=== PATIENT | male | born 1985 | race American Indian/Alaskan Native ===

== ENCOUNTER 2018-09-12 22:07 | Emergency (ER) | payer MEDICAID ==
--- NOTE | 2018-09-13 00:21 | XRay Report ---
PROCEDURE: XR CHEST ROUTINE 2V TECHNIQUE: PA and lateral chest radiographs were obtained. HISTORY: SOB and tachycardia COMPARISONS: None. FINDINGS: Heart: Normal. Mediastinum/Vessels: Normal. Lungs/Pleural space: There is a slight infiltrate left lingular portion of the lung. No effusion or pneumothorax. Bony thorax: No acute osseous abnormality. IMPRESSION: Mild infiltrate left lingular portion of the lung. This document is electronically signed by Neha Gudino DO., September 13 2018 12:19:42 AM ET
[2018-09-13] MEDS ORDERED: ROCEPHIN IM ONE ×2 (04:57→06:18)
[2018-09-13] MEDS ORDERED: XYLOCAINE 1% MPF 5 mL INFILTRATI ONE ×2 (04:57→07:02)
[2018-09-13] MEDS ORDERED: NACL 0.9% 1000 ML 1,000 ML IV ONE (04:58)
[2018-09-13 05:12] LABS: Hemoglobin 11.4 gm/dl (11.8-15.2); Mean Corpuscular HGB Conc 33 % (32-34); Mean Corpuscular Volume 89 fl (84-94); Platelet Count 394 K/mm3 (140-440); Red Blood Count 3.92 M/mm3 (3.65-5.03); Red Cell Distribution Width 14.3 % (13.2-15.2)
[2018-09-13 05:29] LABS: BUN/Creatinine Ratio 12; Blood Urea Nitrogen 13 mg/dL (9-20); Calcium 9.4 mg/dL (8.4-10.2); Hemolysis Index 13
--- NOTE | 2018-09-13 05:31 | Emergency Department Report ---
- General Chief Complaint: Dyspnea/Respdistress Stated Complaint: PNEUMONIA Time Seen by Provider: 09/13/18 04:18 Source: patient, EMS Mode of arrival: Ambulatory Limitations: No Limitations - History of Present Illness Initial Comments: Pt is a 33 yo male who presents to the ED with c/o a cough with mucus production that began 2 weeks ago. He has associated rhinorrhea, congestion, midl SOB, and subjective fever. He has a hx of HTN, asthma, and HIV. The patient states he has been taking his antivirals daily. He states he also uses an albuterol inhaler for his asthma. - Related Data Previous Rx's Medication Instructions Recorded Last Taken Type Azithromycin [Zithromax] 250 mg PO DAILY 5 Days #6 tablet 09/13/18 Unknown Rx Benzonatate [Tessalon Perles] 100 mg PO Q8HR PRN #20 capsule 09/13/18 Unknown Rx Nystas/Diphen/Xyl Visc/Mylanta 30 ml MM Q4H PRN #480 ml 09/13/18 Unknown Rx [Magic Mouthwash] guaiFENesin [Mucinex] 600 mg PO BID #14 tab.er.12h 09/13/18 Unknown Rx Allergies Allergy/AdvReac Type Severity Reaction Status Date / Time No Known Allergies Allergy Unverified 09/12/18 23:51 ED Review of Systems ROS: Stated complaint: PNEUMONIA Other details as noted in HPI Comment: All other systems reviewed and negative ED Past Medical Hx - Medications Home Medications: Home Medications Medication Instructions Recorded Confirmed Last Taken Type Azithromycin [Zithromax] 250 mg PO DAILY 5 Days #6 tablet 09/13/18 Unknown Rx Benzonatate [Tessalon Perles] 100 mg PO Q8HR PRN #20 capsule 09/13/18 Unknown Rx Nystas/Diphen/Xyl Visc/Mylanta 30 ml MM Q4H PRN #480 ml 09/13/18 Unknown Rx [Magic Mouthwash] guaiFENesin [Mucinex] 600 mg PO BID #14 tab.er.12h 09/13/18 Unknown Rx ED Physical Exam - General Limitations: No Limitations General appearance: alert, in no apparent distress - Head Head exam: Present: atraumatic, normocephalic - Eye Eye exam: Present: normal appearance - ENT ENT exam: Present: other (white plaques in the posterior oropharynx with some surrounding erythema, uvula is midline) - Respiratory Respiratory exam: Present: normal lung sounds bilaterally. Absent: respiratory distress, wheezes, rales, rhonchi, stridor, chest wall tenderness, accessory muscle use, decreased breath sounds, prolonged expiratory - Cardiovascular Cardiovascular Exam: Present: regular rate, normal rhythm, normal heart sounds. Absent: systolic murmur, diastolic murmur, rubs, gallop - Neurological Exam Neurological exam: Present: alert, oriented X3 - Psychiatric Psychiatric exam: Present: normal affect, normal mood - Skin Skin exam: Present: warm, dry, intact ED Course Vital Signs 09/13/18 06:40 Pulse Rate 99 H Respiratory 18 Rate O2 Sat by Pulse 99 Oximetry ED Medical Decision Making - Lab Data Result diagrams: 09/13/18 Unknown 09/13/18 Unknown Lab Results 09/13/18 09/13/18 Range/Units Unknown Unknown WBC 5.8 (4.5-11.0) K/mm3 RBC 3.92 (3.65-5.03) M/mm3 Hgb 11.4 L (11.8-15.2) gm/dl Hct 35.0 L (35.5-45.6) % MCV 89 (84-94) fl MCH 29 (28-32) pg MCHC 33 (32-34) % RDW 14.3 (13.2-15.2) % Plt Count 394 (140-440) K/mm3 Add Manual Diff Complete Total Counted 100 Seg Neuts % (Manual) 75.0 H (40.0-70.0) % Band Neutrophils % 0 % Lymphocytes % (Manual) 9.0 L (13.4-35.0) % Reactive Lymphs % (Man) 0 % Monocytes % (Manual) 12.0 H (0.0-7.3) % Eosinophils % (Manual) 4.0 (0.0-4.3) % Basophils % (Manual) 0 (0.0-1.8) % Metamyelocytes % 0 % Myelocytes % 0 % Promyelocytes % 0 % Blast Cells % 0 % Nucleated RBC % 1.0 H (0.0-0.9) % Seg Neutrophils # Man 4.4 (1.8-7.7) K/mm3 Band Neutrophils # 0.0 K/mm3 Lymphocytes # (Manual) 0.5 L (1.2-5.4) K/mm3 Abs React Lymphs (Man) 0.0 K/mm3 Monocytes # (Manual) 0.7 (0.0-0.8) K/mm3 Eosinophils # (Manual) 0.2 (0.0-0.4) K/mm3 Basophils # (Manual) 0.0 (0.0-0.1) K/mm3 Metamyelocytes # 0.0 K/mm3 Myelocytes # 0.0 K/mm3 Promyelocytes # 0.0 K/mm3 Blast Cells # 0.0 K/mm3 WBC Morphology Not Reportable Hypersegmented Neuts Not Reportable Hyposegmented Neuts Not Reportable Hypogranular Neuts Not Reportable Smudge Cells Not Reportable Toxic Granulation Not Reportable Toxic Vacuolation Not Reportable Dohle Bodies Not Reportable Pelger-Huet Anomaly Not Reportable Terry Rods Not Reportable Platelet Estimate Consistent w auto Clumped Platelets Not Reportable Plt Clumps, EDTA Not Reportable Large Platelets Not Reportable Giant Platelets Not Reportable Platelet Satelliting Not Reportable Plt Morphology Comment Not Reportable RBC Morphology Not Reportable Dimorphic RBCs Not Reportable Polychromasia Not Reportable Hypochromasia Not Reportable Poikilocytosis Not Reportable Anisocytosis Few Microcytosis Not Reportable Macrocytosis Not Reportable Spherocytes Not Reportable Pappenheimer Bodies Not Reportable Sickle Cells Not Reportable Target Cells Not Reportable Tear Drop Cells Not Reportable Ovalocytes Not Reportable Helmet Cells Not Reportable [place] Bodies Not Reportable [place] Rings Not Reportable [place] Cells Not Reportable Bite Cells Not Reportable Crenated Cell Not Reportable Elliptocytes Not Reportable Acanthocytes (Spur) Not Reportable Rouleaux Not Reportable Hemoglobin C Crystals Not Reportable Schistocytes Not Reportable Malaria parasites Not Reportable Leobardo Bodies Not Reportable Hem Pathologist Commnt No Sodium 138 (137-145) mmol/L Potassium 4.6 (3.6-5.0) mmol/L Chloride 95.7 L (98-107) mmol/L Carbon Dioxide 26 (22-30) mmol/L Anion Gap 21 mmol/L BUN 13 (9-20) mg/dL Creatinine 1.1 (0.8-1.5) mg/dL Estimated GFR > 60 ml/min BUN/Creatinine Ratio 12 % Glucose 64 L (75-100) mg/dL Calcium 9.4 (8.4-10.2) mg/dL Vital Signs 09/13/18 06:40 Pulse Rate 99 H Respiratory 18 Rate O2 Sat by Pulse 99 Oximetry - Radiology Data Radiology results: report reviewed PROCEDURE: XR CHEST ROUTINE 2V TECHNIQUE: PA and lateral chest radiographs were obtained. HISTORY: SOB and tachycardia COMPARISONS: None. FINDINGS: Heart: Normal. Mediastinum/Vessels: Normal. Lungs/Pleural space: There is a slight infiltrate left lingular portion of the lung. No effusion or pneumothorax. Bony thorax: No acute osseous abnormality. IMPRESSION: Mild infiltrate left lingular portion of the lung. This document is electronically signed by Neha Gudino DO., September 13 2018 12:19:42 AM ET - Medical Decision Making Pt is a 33 yo male who presents to the ED with c/o a cough with mucus production that began 2 weeks ago. He has associated rhinorrhea, congestion, mild SOB, and subjective fever. He has a hx of HTN, asthma, and HIV. The patient states he h as been taking his antivirals daily. He states he also uses an albuterol inhaler for his asthma. on examination pt appears to have oral candidiasis in the posterior pharynx will give pt magic mouth and have pt see infectious disease tomorrow. no wheezing, rales, or rhonchi on examination. VSS. labs WNL. on CXR shows a mild infiltrate left lingular portion of the lung. will give pt ceftriaxone injection in the ED and prescription for zpak. pt is afebrile and no leukocytosis. pt refuses IV fluids, advised to please drink plenty of fluids by mouth. will also give tessalon perles, mucinex, albuterol inhaler. Pt will need to see infectious disease on 09/13/18. Return to the emergency room for any new or worsening symptoms. - Differential Diagnosis PNA, URI, viral syndrome, oral candidiasis Critical care attestation.: If time is entered above; I have spent that time in minutes in the direct care of this critically ill patient, excluding procedure time. ED Disposition Clinical Impression: Oral candidiasis PNA (pneumonia) Qualifiers: Pneumonia type: due to unspecified organism Laterality: left Lung location: unspecified part of lung Qualified Code(s): J18.9 - Pneumonia, unspecified organism Disposition: DC-01 TO HOME OR SELFCARE Is pt being admited?: No Does the pt Need Aspirin: No Condition: Stable Instructions: Oral Candidiasis (ED), Community-acquired Pneumonia (ED) Additional Instructions: Please take all medication as prescribed. Please drink plenty of fluids. Please see infectious disease on 09/13/18. Return to the emergency room for any new or worsening symptoms. Prescriptions: Nystas/Diphen/Xyl Visc/Mylanta [Magic Mouthwash] 30 ml MM Q4H PRN #480 ml PRN Reason: Mouth Pain guaiFENesin [Mucinex] 600 mg PO BID #14 tab.er.12h Benzonatate [Tessalon Perles] 100 mg PO Q8HR PRN #20 capsule PRN Reason: Cough Azithromycin [Zithromax] 250 mg PO DAILY 5 Days #6 tablet Referrals: SILVIO BRAXTON MD [Primary Care Provider] - 2-3 Days MOI PICKERING MD [Staff Physician] - [facility] Time of Disposition: 05:37 Print Language: KISWAHILI
[2018-09-13 09:13] LABS: Basophils % (Manual) 0 % (0.0-1.8); Total Cells Counted 100
[2018-09-13 09:14] LABS: Anisocytosis Few; Platelet Estimate Consistent w Auto
== END 2018-09-13 06:40 | disposition home or self-care (01) ==
LOC: ED 22:07
DX: B37.0 Candidal stomatitis (principal); J18.9 Pneumonia, unspecified organism
CPT/HCPCS: 36415; 71046; 80048; 85007; 85025; 96372; 99284; J0696; J7030

== ENCOUNTER 2019-10-12 19:41 | Emergency (ER) | payer MEDICAID ==
[2019-10-12 19:50] VITALS: BP 126/86
[2019-10-12] MEDS ORDERED: ONDANSETRON 4 MG/2 ML INJ IV ONE (20:56)
[2019-10-12] MEDS ORDERED: DIPHENOXYLATE/ATROPINE TAB PO ONE (20:56)
[2019-10-12] MEDS ORDERED: FAMOTIDINE 20 MG/2 ML INJ IV ONE (20:56)
[2019-10-12] MEDS ORDERED: LACTATED RINGERS 1,000 ML IV ONE (20:56)
[2019-10-12 21:17] LABS: Alanine Aminotransferase 35 units/L (7-56); Albumin 4.2 g/dL (3.9-5); BUN/Creatinine Ratio 11; Blood Urea Nitrogen 15 mg/dL (9-20); Calcium 9.8 mg/dL (8.4-10.2); Hemolysis Index 20
[2019-10-12 21:45] LABS: Bacteria,Urine 1+ /HPF (Negative); Bilirubin,Urine SM (Negative); Blood,Urine NEG (Negative); Color,Urine Amber (Yellow); Mucus,Urine 3+ /HPF
[2019-10-12 21:55] LABS: Red Blood Count TNR M/mm3 (3.65-5.03)
[2019-10-12 21:56] LABS: Hematocrit TNR % (35.5-45.6); Hemoglobin TNR gm/dl (11.8-15.2); Mean Corpuscular HGB Conc TNR % (32-34); Mean Corpuscular Volume TNR fl (84-94); Platelet Count TNR K/mm3 (140-440); Red Cell Distribution Width TNR % (13.2-15.2)
[2019-10-12 21:57] LABS: Basophils % (Auto) TNR % (0.0-1.8); Eosinophils % (Auto) TNR % (0.0-4.3); Lymphocytes # (Auto) TNR K/mm3 (1.2-5.4); Lymphocytes % (Auto) TNR % (13.4-35.0); Mean Platelet Volume TNR fl (6-12); Monocytes # (Auto) TNR K/mm3 (0.0-0.8); Monocytes % (Auto) TNR % (0.0-7.3)
[2019-10-12 21:58] LABS: Band Neutrophils # (Manual) TNR K/mm3; Basophils # (Auto) TNR K/mm3 (0.0-0.1); Basophils % (Manual) TNR % (0.0-1.8); Eosinophils # (Auto) TNR K/mm3 (0.0-0.4); Eosinophils % (Manual) TNR % (0.0-4.3); Monocytes % (Manual) TNR % (0.0-7.3); Total Cells Counted TNR
[2019-10-12 21:59] LABS: Dimorphic RBC TNR; Giant Platelets TNR; Hypersegmented Neutrophils TNR; Hypersegmented Polys TNR; Hypochromasia TNR; Large Platelets TNR; Myelocytes # (Manual) TNR K/mm3; Nucleated Red Blood Cells TNR % (0.0-0.9); Platelet Clumps TNR; Platelet Estimate TNR; Platelet Morphology TNR; Platelet Satelitosis TNR; Poikilocytosis TNR; Promyelocytes # (Manual) TNR K/mm3; RBC Morphology TNR; Smudge Cells TNR
[2019-10-12 22:00] LABS: Anisocytosis TNR; Auer Rods TNR; Basophilic Stippling TNR; Bite Cells TNR; Burr Cells TNR; Cabot Rings TNR; Crenated RBC TNR; Dohle Bodies TNR; Helmet Cells TNR; Hgb C Crystals TNR; Howell-Jolly Bodies TNR; Macrocytosis TNR; Ovalocytes TNR; Pappenheimer Bodies TNR; Rouleaux TNR; Schistocytes TNR; Sickle Cells TNR; Spherocytes TNR; Stomatocytes TNR; Target Cells TNR; Tear Drop Cells TNR; Toxic Granulation TNR; Toxic Vacuolation TNR
[2019-10-12 22:55] LABS: Hematocrit 37.3 % (35.5-45.6); Hemoglobin 11.9 gm/dl (11.8-15.2); Mean Corpuscular HGB Conc 32 % (32-34); Mean Corpuscular Volume 84 fl (84-94); Platelet Count 349 K/mm3 (140-440); Red Blood Count 4.44 M/mm3 (3.65-5.03); Red Cell Distribution Width 16.9 % (13.2-15.2)
--- NOTE | 2019-10-12 23:38 | Emergency Department Report ---
ED N/V/D HPI - General Chief complaint: Abdominal Pain Stated complaint: STOMACH PAIN,DIARRHEA Source: patient Mode of arrival: Ambulatory Limitations: No Limitations - History of Present Illness Initial comments: Patient is a 34-year-old -[place] male with a history of HIV and on ARV medications who presented to the ED with complaint of acute onset persistent diarrhea for the last 4 days. Patient states that he has also had mild abdominal discomfort which she describes as bloating with intermittent nausea. Patient states that he has had multiple diarrhea episodes in the last 12 hours. Patient states that no one else at home has had similar symptoms. Patient s tates that he has been taking [id number] medications with no relief. Patient denies vomiting, fever, chills, dizziness, syncope, abdominal pain, dysuria, urinary frequency and urgency, cough, sore throat, shortness of breath, chest pain, hematemesis or hematochezia. Patient states that he has had multiple diarrhea episodes in the last 12 hours. Patient states that no one else at home has had similar symptoms. Patient did MD complaint: nausea, diarrhea -: Sudden, days(s) (4) Description of Diarrhea: water Associated Abdominal Pain: No Location: diffuse Radiation: none Severity: moderate Pain Scale: 4 Quality: dull Improves with: none Worsens with: none Associated Symptoms: denies other symptoms. denies: myalgias, chest pain, cough, diaphoresis, fever/chills, headaches, loss of appetite, malaise, nausea/vomiting, rash, shortness of breath, syncope, other - Related Data Previous Rx's Medication Instructions Recorded Last Taken Type Azithromycin [Zithromax] 250 mg PO DAILY 5 Days #6 tablet 09/13/18 Unknown Rx Benzonatate [Tessalon Perles] 100 mg PO Q8HR PRN #20 capsule 09/13/18 Unknown Rx Nystas/Diphen/Xyl Visc/Mylanta 30 ml MM Q4H PRN #480 ml 09/13/18 Unknown Rx [Magic Mouthwash] guaiFENesin [Mucinex] 600 mg PO BID #14 tab.er.12h 09/13/18 Unknown Rx Dicyclomine [Bentyl] 20 mg PO Q6H PRN #24 tablet 10/12/19 Unknown Rx Diphenoxylate/Atropine [Lomotil] 2 tab PO Q4H PRN #20 tablet 10/12/19 Unknown Rx Famotidine [Pepcid] 20 mg PO Q12H #30 tablet 10/12/19 Unknown Rx Allergies Allergy/AdvReac Type Severity Reaction Status Date / Time No Known Allergies Allergy Unverified 09/12/18 23:51 ED Review of Systems ROS: Stated complaint: STOMACH PAIN,DIARRHEA Other details as noted in HPI Constitutional: denies: chills, fever Eyes: denies: eye pain, eye discharge, vision change ENT: denies: ear pain, throat pain Respiratory: denies: cough, shortness of breath, wheezing Cardiovascular: denies: chest pain, palpitations Endocrine: no symptoms reported Gastrointestinal: nausea, diarrhea. denies: abdominal pain Genitourinary: denies: urgency, dysuria Musculoskeletal: denies: back pain, joint swelling, arthralgia Skin: denies: rash, lesions Neurological: denies: headache, weakness, paresthesias Psychiatric: denies: anxiety, depression Hematological/Lymphatic: denies: easy bleeding, easy bruising ED Past Medical Hx - Past Medical History Previous Medical History?: Yes Hx HIV: Yes - Surgical History Past Surgical History?: Yes Additional Surgical History: bronchoscopy - Social History Smoking Status: Current Every Day Smoker Substance Use Type: Marijuana - Medications Home Medications: Home Medications Medication Instructions Recorded Confirmed Last Taken Type Azithromycin [Zithromax] 250 mg PO DAILY 5 Days #6 tablet 09/13/18 Unknown Rx Benzonatate [Tessalon Perles] 100 mg PO Q8HR PRN #20 capsule 09/13/18 Unknown Rx Nystas/Diphen/Xyl Visc/Mylanta 30 ml MM Q4H PRN #480 ml 09/13/18 Unknown Rx [Magic Mouthwash] guaiFENesin [Mucinex] 600 mg PO BID #14 tab.er.12h 09/13/18 Unknown Rx Dicyclomine [Bentyl] 20 mg PO Q6H PRN #24 tablet 10/12/19 Unknown Rx Diphenoxylate/Atropine [Lomotil] 2 tab PO Q4H PRN #20 tablet 10/12/19 Unknown Rx Famotidine [Pepcid] 20 mg PO Q12H #30 tablet 10/12/19 Unknown Rx ED Physical Exam - General Limitations: No Limitations General appearance: alert, in no apparent distress - Head Head exam: Present: atraumatic, normocephalic, normal inspection - Eye Eye exam: Present: normal appearance, PERRL, EOMI Pupils: Present: normal accommodation - ENT ENT exam: Present: normal exam, normal orophraynx, mucous membranes moist, TM's normal bilaterally, normal external ear exam - Neck Neck exam: Present: normal inspection, full ROM. Absent: tenderness, lymphadenopathy - Respiratory Respiratory exam: Present: normal lung sounds bilaterally. Absent: respiratory distress, wheezes, rales, rhonchi, stridor, chest wall tenderness, accessory muscle use, decreased breath sounds - Cardiovascular Cardiovascular Exam: Present: normal rhythm, tachycardia, normal heart sounds. Absent: systolic murmur, diastolic murmur, rubs, gallop - GI/Abdominal GI/Abdominal exam: Present: soft, normal bowel sounds. Absent: distended, tenderness, guarding, hyperactive bowel sounds, hypoactive bowel sounds, organomegaly - Extremities Exam Extremities exam: Present: normal inspection, full ROM, normal capillary refill - Back Exam Back exam: Present: normal inspection, full ROM. Absent: tenderness, CVA tenderness (R), muscle spasm, paraspinal tenderness, vertebral tenderness - Neurological Exam Neurological exam: Present: alert, oriented X3, CN II-XII intact, normal gait, r eflexes normal - Psychiatric Psychiatric exam: Present: normal affect, normal mood - Skin Skin exam: Present: warm, dry, intact, normal color. Absent: rash ED Course Vital Signs 10/12/19 10/12/19 19:48 23:54 Temperature 97.9 F 97.6 F Pulse Rate 111 H 102 H Respiratory 16 18 Rate Blood Pressure 126/86 124/77 O2 Sat by Pulse 100 100 Oximetry ED Medical Decision Making - Lab Data Result diagrams: 10/12/19 22:04 10/12/19 20:46 - Medical Decision Making This is a 34-year-old -[place] male with a history of HIV and on ARV medications who presented to the ED with complaint of acute onset persistent diarrhea for the last 4 days. Patient states that he has also had mild abdominal discomfort which she describes as bloating with intermittent nausea. Patient states that he has had multiple diarrhea episodes in the last 12 hours. Patient states that no one else at home has had similar symptoms. Patient states that he has been taking [id number] medications with no relief. In the ED, patient is alert and oriented x3 and is not in distress but tachycardic in triage. Patient was treated in the ED for diarrhea, nausea and antacids, and also given lactated Ringer's 1 L IV bolus x1. On reevaluation, patient felt better and the tachycardia resolved with treatment. Patient was discharged home on medications and advised to follow-up with his primary care physician in 5 to 7 days for reevaluation, meanwhile maintain a clear liquid diet for 12 to 24 hours as he takes medications. Patient was advised to return to the ED immediately if symptoms get worse. - Differential Diagnosis Viral gastroenteritis; Dehydration; Medication side-effects Critical care attestation.: If time is entered above; I have spent that time in minutes in the direct care of this critically ill patient, excluding procedure time. ED Disposition Clinical Impression: Viral gastroenteritis, Diarrhea in adult patient Disposition: TO HOME OR SELFCARE Is pt being admited?: No Does the pt Need Aspirin: No Condition: Stable Instructions: Gastroenteritis (ED), Acute Diarrhea (ED) Additional Instructions: All lab test results are nonactionable. Your symptoms are likely viral in etiology, therefore take medications with food, maintain a clear liquid diet for 12 to 24 hours and follow-up with your primary care physician in 5 to 7 days for reevaluation. Return to the ED immediately if symptoms get worse. Prescriptions: Dicyclomine [Bentyl] 20 mg PO Q6H PRN #24 tablet PRN Reason: Pain , Severe (7-10) Diphenoxylate/Atropine [Lomotil] 2 tab PO Q4H PRN #20 tablet PRN Reason: Diarrhea Famotidine [Pepcid] 20 mg PO Q12H #30 tablet Referrals: RAHEL MITCHELL MD [Primary Care Provider] - 3-5 Days Time of Disposition: 23:35 Print Language: HAITIAN
[2019-10-13 01:06] LABS: Anisocytosis 1+; Basophils % (Manual) 0 % (0.0-1.8); Platelet Estimate Consistent w Auto; Total Cells Counted 100
== END 2019-10-12 23:56 | disposition home or self-care (01) ==
LOC: ED 19:41
DX: K21.9 Gastro-esophageal reflux disease without esophagitis (principal); F17.200 Nicotine dependence, unspecified, uncomplicated; F12.10 Cannabis abuse, uncomplicated; Z79.899 Other long term (current) drug therapy
CPT/HCPCS: 36415; 80053; 81001; 83690; 85007; 85025; 96361; 96374; 96375; 99283; J2405; J7120

== ENCOUNTER 2020-01-24 12:14 | Emergency (ER) | payer MEDICAID ==
[2020-01-24 13:11] VITALS: BP 116/77
--- NOTE | 2020-01-24 13:21 | Event Note ---
ED Screening Note Date of service: 01/24/20 Time: 13:17 ED Screening Note: 34-year-old male with a history of HIV currently out of his medication presents with a week of body aches, worsening chest pain that began yesterday and feelings of fatigue. Denies any unknown sick contact. This initial assessment/diagnostic orders/clinical plan/treatment(s) is/are subject to change based on patients health status, clinical progression and re- assessment by fellow clinical providers in the ED. Further treatment and workup at subsequent clinical providers discretion. Patient/guardian urged not to elope from the ED as their condition may be serious if not clinically assessed and managed. Initial orders include: Labs, chest x-ray, EKG
[2020-01-24 14:05] LABS: Hematocrit 43.2 % (35.5-45.6); Hemoglobin 14.2 gm/dl (11.8-15.2); Mean Corpuscular HGB Conc 33 % (32-34); Mean Corpuscular Volume 84 fl (84-94); Platelet Count 339 K/mm3 (140-440); Red Blood Count 5.14 M/mm3 (3.65-5.03); Red Cell Distribution Width 14.7 % (13.2-15.2)
[2020-01-24 14:24] LABS: BUN/Creatinine Ratio 11; Blood Urea Nitrogen 17 mg/dL (9-20); Calcium 10.3 mg/dL (8.4-10.2); Hemolysis Index 7
--- NOTE | 2020-01-24 14:46 | XRay Report ---
CHEST 2 VIEWS INDICATION / CLINICAL INFORMATION: Upper Respiratory Infection. COMPARISON: Chest x-ray 09/12/2018 FINDINGS: SUPPORT DEVICES: None. HEART / MEDIASTINUM: No significant abnormality. LUNGS / PLEURA: No significant pulmonary or pleural abnormality. No pneumothorax. ADDITIONAL FINDINGS: No significant additional findings. IMPRESSION: 1. No acute findings. Signer Name: Agustín Ndiaye MD Signed: 01/24/2020 2:42 PM Workstation Name: [id number]
[2020-01-24 14:51] LABS: Anisocytosis 1+; Basophils % (Manual) 0 % (0.0-1.8); Hypochromasia 1+; Platelet Estimate Consistent w Auto; Total Cells Counted 100
== END 2020-01-24 14:00 | disposition left against medical advice (07) ==
LOC: ED 12:14
DX: J02.9 Acute pharyngitis, unspecified (principal); Z53.21 Procedure and treatment not carried out due to patient leaving prior to being seen by health care provider
CPT/HCPCS: 36415; 71046; 80048; 85007; 85025

== ENCOUNTER 2020-02-12 08:10 | Emergency (ER) | payer MEDICAID ==
[2020-02-12 09:10] LABS: Hemoglobin 15.2 gm/dl (11.8-15.2); Mean Corpuscular HGB Conc 32 % (32-34); Mean Corpuscular Volume 86 fl (84-94); Platelet Count 287 K/mm3 (140-440); Red Blood Count 5.46 M/mm3 (3.65-5.03); Red Cell Distribution Width 14.9 % (13.2-15.2)
[2020-02-12 09:34] LABS: Alanine Aminotransferase 28 units/L (7-56); Albumin 4.6 g/dL (3.9-5); BUN/Creatinine Ratio 13; Blood Urea Nitrogen 18 mg/dL (9-20); Calcium 10.1 mg/dL (8.4-10.2); Hemolysis Index 4
[2020-02-12] MEDS ORDERED: SODIUM CHLORIDE 0.9% 1000 ML 1,000 ML IV ONE ×2 (09:34→11:07)
[2020-02-12] MEDS ORDERED: ONDANSETRON 4 MG/2 ML INJ IV ONE ×2 (09:34→11:07)
[2020-02-12] MEDS ORDERED: SODIUM CHLORIDE 0.9% 1000 ML 1,000 ML ONE (09:36)
[2020-02-12] MEDS ORDERED: ONDANSETRON 4 MG/2 ML INJ ONE (09:36)
--- NOTE | 2020-02-12 09:39 | Emergency Department Report ---
HPI - General Chief Complaint: Nausea/Vomiting/Diarrhea Time Seen by Provider: 02/12/20 09:28 - HPI HPI: This is a 34-year-old -[place] male presents to the emergency department with a complaint of waking up this morning with nausea, vomiting, chills and sweats. After copious vomiting the patient developed some mild abdominal discomfort. He denies any actual fever. He has a past medical history of HIV and was on antiretroviral therapy until about 2 weeks ago when he ran out of his medication. He has not been able to follow-up with a primary care physician or infectious disease physician "since the pandemic started." No recent travel or sick contacts at home. No known exposure to anyone with Covid 19. He has not taken anything for symptoms today prior to presentation. ED Past Medical Hx - Past Medical History Hx HIV: Yes - Surgical History Additional Surgical History: bronchoscopy - Social History Smoking Status: Current Every Day Smoker - Medications Home Medications: Home Medications Medication Instructions Recorded Confirmed Last Taken Type Azithromycin [Zithromax] 250 mg PO DAILY 5 Days #6 tablet 09/13/18 Unknown Rx Benzonatate [Tessalon Perles] 100 mg PO Q8HR PRN #20 capsule 09/13/18 Unknown Rx Nystas/Diphen/Xyl Visc/Mylanta 30 ml MM Q4H PRN #480 ml 09/13/18 Unknown Rx [Magic Mouthwash] guaiFENesin [Mucinex] 600 mg PO BID #14 tab.er.12h 09/13/18 Unknown Rx Dicyclomine [Bentyl] 20 mg PO Q6H PRN #24 tablet 10/12/19 Unknown Rx Diphenoxylate/Atropine [Lomotil] 2 tab PO Q4H PRN #20 tablet 10/12/19 Unknown Rx Famotidine [Pepcid] 20 mg PO Q12H #30 tablet 10/12/19 Unknown Rx Ondansetron [Zofran Odt] 4 mg PO Q8HR PRN #15 tab.rapdis 02/12/20 Unknown Rx ED Review of Systems ROS: Stated complaint: SWEATING, STOMACH PAIN Other details as noted in HPI Comment: All other systems reviewed and negative Constitutional: chills, diaphoresis Eyes: denies: eye pain, vision change ENT: denies: ear pain, throat pain Respiratory: denies: cough, shortness of breath Cardiovascular: denies: chest pain, palpitations Gastrointestinal: abdominal pain, nausea, vomiting Genitourinary: denies: dysuria, discharge Musculoskeletal: denies: back pain, arthralgia Skin: denies: rash, lesions Neurological: denies: headache, weakness Physical Exam - Physical Exam Vital Signs: Vital Signs 02/12/20 08:16 Temperature 97.7 F Pulse Rate 128 H Respiratory 20 Rate Blood Pressure 136/92 O2 Sat by Pulse 99 Oximetry Physical Exam: GENERAL: The patient is well-developed well-nourished. HENT: Normocephalic. Atraumatic. Patient has moist mucous membranes. EYES: Extraocular motions are intact. NECK: Supple. Trachea is midline. CHEST/LUNGS: Clear to auscultation. There is no respiratory distress noted. HEART/CARDIOVASCULAR: Regular. There is mild tachycardia. There is no murmur. ABDOMEN: Abdomen is soft. Mild epigastric abdominal tenderness to palpation. No guarding. Patient has normal bowel sounds. There is no abdominal distention. SKIN: Skin is warm and dry. NEURO: The patient is awake, alert, and oriented. The patient is cooperative. The patient has no focal neurologic deficits. Normal speech. MUSCULOSKELETAL: There is no tenderness or deformity. There is no limitation range of motion. ED Course Vital Signs 02/12/20 08:16 Temperature 97.7 F Pulse Rate 128 H Respiratory 20 Rate Blood Pressure 136/92 O2 Sat by Pulse 99 Oximetry ED Medical Decision Making - Lab Data Result diagrams: 02/12/20 08:49 02/12/20 08:49 - Radiology Data Radiology results: image reviewed interpreted by me: Abdominal x-ray shows increased stool volume, but otherwise nonspecific nonobstructive bowel gas. - Medical Decision Making This patient presents with some acute nausea and vomiting starting this morning. Patient also complains of some intermittent chills and sweats. He has some mild epigastric discomfort secondary to the nausea and vomiting. Patient did have an episode of vomiting upon arrival to the emergency department. He was gi kylah IV Zofran and IV fluid resuscitation. Patient's labs have been otherwise mostly unremarkable including CBC, metabolic panel, lipase. The patient's urinalysis has 10 white blood cells in it with trace leukocyte esterase but no nitrites. Urine culture sent. The patient does not have any complaints of any dysuria. Patient was reevaluated multiple times over multiple hours and is feeling improved. He was able to pass an oral challenge. He will be discharged home to follow-up with primary care and infectious disease. He has been given a prescription for Zofran ODT and encouraged to increase his oral rehydration. The patient will return to the emergency department with any worsening of his symptoms or with any acute distress. Critical Care Time: No Critical care attestation.: If time is entered above; I have spent that time in minutes in the direct care of this critically ill patient, excluding procedure time. ED Disposition Clinical Impression: Viral gastroenteritis Nausea & vomiting Qualifiers: Vomiting type: unspecified Vomiting Intractability: non-intractable Qualified Code(s): R11.2 - Nausea with vomiting, unspecified HIV (human immunodeficiency virus infection) Qualifiers: HIV symptom status: unspecified Qualified Code(s): B20 - Human immunodeficiency virus [HIV] disease Disposition: TO HOME OR SELFCARE Is pt being admited?: No Condition: Stable Instructions: Acute Nausea and Vomiting (ED), Viral Syndrome (ED) Additional Instructions: Please follow-up with a primary care physician and/or infectious disease doctor. Return to the emergency department with any worsening of your symptoms or with any acute distress. Increase your oral rehydration. Prescriptions: Ondansetron [Zofran Odt] 4 mg PO Q8HR PRN #15 tab.rapdis PRN Reason: Nausea Referrals: IMELDA WOODWARD MD [Primary Care Provider] - 3-5 Days KATHRINE LEMA MD [Staff Physician] - 3-5 Days SILVIO BRAXTON MD [Staff Physician] - 3-5 Days MOI PICKERING MD [Staff Physician] - 3-5 Days Time of Disposition: 12:43
[2020-02-12 09:40] LABS: Bilirubin,Urine NEG (Negative); Blood,Urine NEG (Negative); Color,Urine Amber (Yellow); Mucus,Urine 2+ /HPF
[2020-02-12 09:54] LABS: Total Cells Counted 100
[2020-02-12 09:55] LABS: Basophils % (Manual) 0 % (0.0-1.8)
[2020-02-12 09:56] LABS: Anisocytosis 1+
[2020-02-12 09:57] LABS: Large Platelets Few; Platelet Estimate Consistent w Auto
--- NOTE | 2020-02-12 10:27 | XRay Report ---
ABDOMEN 2 VIEW(S) INDICATION / CLINICAL INFORMATION: Abd pain. COMPARISON: None available. FINDINGS: TUBES / LINES: None. BOWEL GAS PATTERN/EXTRALUMINAL GAS: No acute findings. Moderate constipation. No free air or pneumato sis. ADDITIONAL FINDINGS: No significant additional findings. IMPRESSION: 1. Moderate constipation without acute abnormality. Signer Name: Jordin Gama MD Signed: 02/12/2020 10:22 AM Workstation Name: [id number]
[2020-02-12 13:06] VITALS: BP 127/78
== END 2020-02-12 13:05 | disposition home or self-care (01) ==
LOC: ED 08:10
DX: A08.39 Other viral enteritis (principal); B20 Human immunodeficiency virus [HIV] disease; F17.200 Nicotine dependence, unspecified, uncomplicated; Z79.899 Other long term (current) drug therapy
CPT/HCPCS: 36415; 74019; 80053; 81001; 83690; 85007; 85025; 87086; 96361; 96374; 96375; 99284; J2405; J7030; 96376